=== PATIENT | male | born 2000 | race Caucasian/White ===

== ENCOUNTER 2023-01-20 15:03 | Observation (INO) | payer OTHER, SELFPAY ==
[~2023-01-20 15:03] MED LIST: Iopamidol 300 61% 100 ML VIAL FS ONE
[2023-01-20 15:34] LABS: #Basophils 0.1 10x3/uL (0.0-0.2); #Monocytes 1.7 10x3/uL (0.0-1.1); #Neutrophils 18.2 10x3/uL (1.5-8.4); %Basophils 0.2 % (0.0-2.0); %Lymphocytes 5.9 % (18.0-47.0); %Neutrophils 85.6 % (40.0-75.0); Hematocrit 48.5 % (38.8-50.0); Hemoglobin 17.5 g/dL (13.5-17.5); Mean Corpuscular HGB CONC 36.1 g/dL (32.0-36.0); Mean Corpuscular Hemoglobin 30.1 pg (27.0-33.0); Mean Corpuscular Volume 83.3 fl (81.2-95.1); Mean Platelet Volume 10.1 fl (7.4-10.4); Platelet Count 388 10x3/uL (150-450); RBC Distribution Width 12.6 % (11.5-14.5); Red Blood Cell (RBC) Count 5.82 10x6/uL (4.32-5.72); White Blood Cell (WBC) Count 21.2 10x3/uL (3.5-10.5)
[2023-01-20 15:55] LABS: ALT (SGPT) 30 U/L (8-55); AST (SGOT) 30 U/L (5-34); Alkaline Phosphatase 85 U/L (40-110); Anion Gap 24 mmol/L (10-20); BUN (Urea Nitrogen) 19 mg/dL (8.9-20.6); Bilirubin, Total 1.4 mg/dL (0.2-1.2); Calc. Creatinine Clearance 0 mL/min (70-130); Calcium 11.1 mg/dL (7.8-10.44); Carbon Dioxide 19 mmol/L (22-29); Chloride 96 mmol/L (98-107); Estimated GFR 40; Globulin 3.6 g/dL (2.4-3.5); Glucose 96 mg/dL (70-105); Protein, Total 9.6 g/dL (6.0-8.3); Sodium 136 mmol/L (136-145)
[2023-01-20] MEDS ORDERED: Ondansetron PF 4 MG/2 ML Vial ONE ×2 (16:05→23:18)
[2023-01-20 16:18] LABS: CK (CPK) 841 U/L (30-200); Magnesium 1.4 mg/dL (1.6-2.6)
[2023-01-20] MEDS ORDERED: Potassium Chloride 20 MEQ TAB ONE (16:18)
[2023-01-20] MEDS ORDERED: Ketorolac Tromethamine 30 MG/ML VIAL ONE (16:19)
[2023-01-20] MEDS ORDERED: Pantoprazole 40 MG VIAL ONE (16:34)
[2023-01-20] MEDS ORDERED: Magnesium 2 GM/50 ML BAG (IN WATER) ONE (17:38)
[2023-01-20] MEDS ORDERED: Promethazine HCl 25 MG in Sodium Chloride 0.9% 50 ML IVPB SCH (19:00)
[2023-01-20 20:18] LABS: Calc. Creatinine Clearance 0 mL/min (70-130); Sodium 135 mmol/L (136-145)
[2023-01-20 21:03] LABS: Carbon Dioxide 18 mmol/L (22-29); Chloride 106 mmol/L (98-107); Potassium 3.5 mmol/L (3.5-5.1)
[2023-01-20 21:06] LABS: Anion Gap 15 mmol/L (10-20)
[2023-01-20 21:07] LABS: BUN (Urea Nitrogen) 16 mg/dL (8.9-20.6); Estimated GFR 75
[2023-01-20 21:08] LABS: Bilirubin, Total 1.1 mg/dL (0.2-1.2); Calcium 8.2 mg/dL (7.8-10.44); Glucose 103 mg/dL (70-105)
[2023-01-20 21:09] LABS: Protein, Total 6.6 g/dL (6.0-8.3)
[2023-01-20 21:10] LABS: Albumin 4.3 g/dL (3.5-5.0); Globulin 2.3 g/dL (2.4-3.5)
[2023-01-20 21:11] LABS: AST (SGOT) 27 U/L (5-34); Alkaline Phosphatase 56 U/L (40-110); CK (CPK) 922 U/L (30-200)
[2023-01-20 21:12] LABS: ALT (SGPT) 22 U/L (8-55); Magnesium 2.6 mg/dL (1.6-2.6)
[2023-01-20 21:55] LABS: Bilirubin Neg (Negative); Blood, Urine Negative (Negative); Clarity Clear (Clear); Glucose, Urine (Dipstick) Normal (Negative); Ketone, Urine Negative (Negative); Leukocyte Negative (Negative); Nitrite Negative (Negative); Protein, Urine (Dipstick) 15 mg/dl (Neg-Trace); Urobilinogen Normal mg/dL (Less than 2)
[2023-01-20 22:11] LABS: Bacteria/HPF None Seen HPF (None Seen); CAUTI Indications for Culture Pelvic or flank pain; RBC/HPF None Seen HPF (0-3); Squamous Epithelial None Seen HPF (0-3); Urine Culture Reflex No No; WBC/HPF 0-3 HPF (0-3)
[2023-01-20] MEDS ORDERED: Acetaminophen 325 MG TAB PO PRN (22:56)
[2023-01-20] MEDS ORDERED: Calcium Carbonate 500 MG ChewTAB PO PRN (22:56)
[2023-01-20] MEDS ORDERED: Famotidine/PF 20 mg/2ml Vial SLOW IVP SCH (23:15)
[2023-01-20] MEDS ORDERED: Magnesium 2 GM/50 ML(in water) 2 GM in Premix Bag 1 BAG IVPB SCH (23:15)
[2023-01-20] MEDS: Ondansetron PF 4 MG/2 ML Vial IVP PRN (23:26)
[2023-01-20] MEDS ORDERED: Famotidine/PF 20 mg/2ml Vial ONE (23:46)
[2023-01-20] MEDS: Lactated Ringer's 1,000 ML IV SCH (23:49)
[2023-01-21] MEDS ORDERED: Potassium Chloride 20 MEQ in Premix Bag 1 BAG IVPB SCH
[2023-01-21 02:59] LABS: #Neutrophils 10.4 10x3/uL (1.5-8.4); %Basophils 0.1 % (0.0-2.0); %Eosinophils 0.1 % (0.0-6.0); %Lymphocytes 9.8 % (18.0-47.0); %Monocytes 7.9 % (0.0-10.0); %Neutrophils 81.7 % (40.0-75.0); Hematocrit 36.6 % (38.8-50.0); Hemoglobin 12.9 g/dL (13.5-17.5); Mean Corpuscular HGB CONC 35.2 g/dL (32.0-36.0); Mean Corpuscular Hemoglobin 30.2 pg (27.0-33.0); Mean Corpuscular Volume 85.7 fl (81.2-95.1); Mean Platelet Volume 10.5 fl (7.4-10.4); Platelet Count 225 10x3/uL (150-450); RBC Distribution Width 12.8 % (11.5-14.5); Red Blood Cell (RBC) Count 4.27 10x6/uL (4.32-5.72); White Blood Cell (WBC) Count 12.7 10x3/uL (3.5-10.5)
[2023-01-21 03:12] LABS: Anion Gap 13 mmol/L (10-20); BUN (Urea Nitrogen) 15 mg/dL (8.9-20.6); CK (CPK) 924 U/L (30-200); Calc. Creatinine Clearance 0 mL/min (70-130); Calcium 8.2 mg/dL (7.8-10.44); Carbon Dioxide 20 mmol/L (22-29); Chloride 108 mmol/L (98-107); Estimated GFR 114; Glucose 98 mg/dL (70-105); Magnesium 2.3 mg/dL (1.6-2.6); Potassium 3.4 mmol/L (3.5-5.1); Sodium 138 mmol/L (136-145)
[2023-01-21] MEDS: Lactated Ringer's 1,000 ML IV SCH ×3 (04:52→14:22)
[2023-01-21] MEDS: Ondansetron PF 4 MG/2 ML Vial IVP PRN (05:55)
[2023-01-21] MEDS ORDERED: Ondansetron PF 4 MG/2 ML Vial ONE (05:55)
[2023-01-21] MEDS ORDERED: Potassium Chloride 20 MEQ TAB PO SCH (08:00)
[2023-01-21] MEDS ORDERED: Potassium Chloride 20 MEQ TAB ONE (08:55)
[2023-01-21 12:50] LABS: Anion Gap 12 mmol/L (10-20); BUN (Urea Nitrogen) 10 mg/dL (8.9-20.6); Calc. Creatinine Clearance 0 mL/min (70-130); Calcium 8.4 mg/dL (7.8-10.44); Carbon Dioxide 22 mmol/L (22-29); Chloride 108 mmol/L (98-107); Estimated GFR 130; Glucose 98 mg/dL (70-105); Potassium 3.5 mmol/L (3.5-5.1); Sodium 138 mmol/L (136-145)
[2023-01-21 12:58] VITALS: BP 136/68; TEMP 97.8
[2023-01-21 14:16] VITALS: BMI 22.0
== END 2023-01-21 16:10 | disposition home or self-care (01) ==
LOC: CSHERS 15:03 → CSHERHOLD 22:43 → INTOOBSV 22:43
PROVIDERS: ADMIT Student in an Organized Health Care Education/Training Program; ATTEND Nurse Practitioner Family
DX: M62.82 Rhabdomyolysis (principal); E87.6 Hypokalemia; E83.42 Hypomagnesemia; N17.9 Acute kidney failure, unspecified; E87.20 Acidosis, unspecified; I48.91 Unspecified atrial fibrillation; R65.10 Systemic inflammatory response syndrome (SIRS) of non-infectious origin without acute organ dysfunction; F17.290 Nicotine dependence, other tobacco product, uncomplicated; T67.9XXA Effect of heat and light, unspecified, initial encounter; Z79.899 Other long term (current) drug therapy
CPT/HCPCS: 36415; 74177; 76705; 80048; 80053; 81001; 82550; 83605; 83690; 83735; 84443; 85025; 87040; 93005; 93010; 93306; 96374; 96375; 96376; C9113; G0378; J1650; J1885; J2405; J2550; J3475; J7120; Q9967; S0028

== ENCOUNTER 2023-11-30 21:54 | Emergency (ER) | payer OTHER, SELFPAY ==
[2023-11-30] MEDS ORDERED: Ibuprofen 200 MG TAB ONE (23:20)
== END 2023-11-30 23:44 | disposition home or self-care (01) ==
LOC: CSHERS 21:54
DX: H60.502 Unspecified acute noninfective otitis externa, left ear (principal); F17.290 Nicotine dependence, other tobacco product, uncomplicated
CPT/HCPCS: 99282

== ENCOUNTER 2023-12-22 09:55 | Emergency (ER) | payer SELFPAY ==
[2023-12-22] MEDS ORDERED: Ketorolac Tromethamine 30 MG (1 mL) VIAL ONE (10:37)
[2023-12-22] MEDS ORDERED: Ondansetron PF 4 MG/2 ML Vial ONE ×2 (10:37→12:03)
[2023-12-22] MEDS ORDERED: Pantoprazole 40 MG VIAL ONE (10:38)
[2023-12-22 10:54] LABS: ALT (SGPT) 10 U/L (8-55); AST (SGOT) 14 U/L (5-34); Albumin 4.8 g/dL (3.5-5.0); Alkaline Phosphatase 75 U/L (40-110); Anion Gap 16 mmol/L (10-20); BUN (Urea Nitrogen) 5 mg/dL (8.9-20.6); Bilirubin, Total 0.9 mg/dL (0.2-1.2); Calc. Creatinine Clearance 0 mL/min (70-130); Calcium 10.4 mg/dL (7.8-10.44); Carbon Dioxide 22 mmol/L (22-29); Chloride 106 mmol/L (98-107); Estimated GFR 126; Globulin 2.5 g/dL (2.4-3.5); Glucose 131 mg/dL (70-105); Lipase 17 U/L (8-78); Potassium 3.3 mmol/L (3.5-5.1); Protein, Total 7.3 g/dL (6.0-8.3); Sodium 141 mmol/L (136-145)
[2023-12-22 11:02] LABS: #Basophils 0.05 10x3/uL (0.0-0.2); #Monocytes 0.33 10x3/uL (0.0-1.1); #Neutrophils 9.33 10x3/uL (1.5-8.4); %Basophils 0.5 % (0.0-2.0); %Lymphocytes 8.9 % (18.0-47.0); %Monocytes 3.1 % (0.0-10.0); %Neutrophils 87.2 % (40.0-75.0); Hematocrit 42.9 % (38.8-50.0); Hemoglobin 15.5 g/dL (13.5-17.5); Mean Corpuscular HGB CONC 36.1 g/dL (32.0-36.0); Mean Corpuscular Hemoglobin 31.3 pg (27.0-33.0); Mean Corpuscular Volume 86.5 fL (81.2-95.1); Mean Platelet Volume 10.2 fL (7.4-10.4); Platelet Count 285 10x3/uL (150-450); RBC Distribution Width 12.6 % (11.5-14.5); Red Blood Cell (RBC) Count 4.96 10x6/uL (4.32-5.72); White Blood Cell (WBC) Count 10.7 10x3/uL (3.5-10.5)
[2023-12-22] MEDS ORDERED: Lidocaine 2% Viscous 10 mL, Alum & Magn 30 mL SSW SCH (13:30)
== END 2023-12-22 12:14 | disposition home or self-care (01) ==
LOC: CSHERS 09:55
DX: K52.9 Noninfective gastroenteritis and colitis, unspecified (principal); F17.290 Nicotine dependence, other tobacco product, uncomplicated
CPT/HCPCS: 80053; 83690; 85025; 96374; 96375; 96376; C9113; J1885; J2405

== ENCOUNTER 2024-03-20 05:28 | Emergency (ER) | payer SELFPAY ==
[2024-03-20] MEDS ORDERED: Ketorolac Tromethamine 30 MG (1 mL) VIAL ONE ×2 (06:17→08:52)
[2024-03-20] MEDS ORDERED: Famotidine/PF 20 mg/2ml Vial ONE (06:17)
[2024-03-20] MEDS ORDERED: Ondansetron PF 4 MG/2 ML Vial ONE ×2 (06:17→08:51)
[2024-03-20 06:50] LABS: #Basophils 0.01 10x3/uL (0.0-0.2); #Monocytes 0.77 10x3/uL (0.0-1.1); #Neutrophils 10.12 10x3/uL (1.5-8.4); %Basophils 0.1 % (0.0-2.0); %Lymphocytes 8.4 % (18.0-47.0); %Monocytes 6.5 % (0.0-10.0); %Neutrophils 84.7 % (40.0-75.0); Hematocrit 45.4 % (38.8-50.0); Mean Corpuscular HGB CONC 35.2 g/dL (32.0-36.0); Mean Corpuscular Hemoglobin 30.3 pg (27.0-33.0); Mean Platelet Volume 9.6 fL (7.4-10.4); Platelet Count 330 10x3/uL (150-450); RBC Distribution Width 12.1 % (11.5-14.5); Red Blood Cell (RBC) Count 5.28 10x6/uL (4.32-5.72); White Blood Cell (WBC) Count 11.9 10x3/uL (3.5-10.5)
[2024-03-20 07:05] LABS: ALT (SGPT) 24 U/L (8-55); AST (SGOT) 21 U/L (5-34); Alkaline Phosphatase 78 U/L (40-110); Anion Gap 18 mmol/L (10-20); BUN (Urea Nitrogen) 16 mg/dL (8.9-20.6); Bilirubin, Total 2.1 mg/dL (0.2-1.2); Calc. Creatinine Clearance 0 mL/min (70-130); Calcium 10.5 mg/dL (7.8-10.44); Carbon Dioxide 22 mmol/L (22-29); Chloride 97 mmol/L (98-107); Estimated GFR 125; Globulin 2.9 g/dL (2.4-3.5); Glucose 129 mg/dL (70-105); Lipase 20 U/L (8-78); Potassium 3.3 mmol/L (3.5-5.1); Protein, Total 7.9 g/dL (6.0-8.3); Sodium 134 mmol/L (136-145)
[2024-03-20 07:12] LABS: Troponin I Less than 0.010 ng/mL (< 0.028)
[2024-03-20] MEDS ORDERED: Dicyclomine 20 MG/2 ML VIAL ONE (08:51)
[2024-03-20 09:37] LABS: Bilirubin Neg (Negative); Blood, Urine 10 (Negative); Glucose, Urine (Dipstick) Normal (Negative); Ketone, Urine Negative (Negative); Leukocyte Negative (Negative); Nitrite Negative (Negative); Protein, Urine (Dipstick) 15 mg/dl (Neg-Trace); Specific Gravity, Urine 1.015 (1.005-1.030); Urobilinogen Normal mg/dL (Less than 2)
[2024-03-20 09:53] LABS: Clarity Clear (Clear)
[2024-03-20 10:04] LABS: Bacteria/HPF Rare-Few HPF (None Seen); CAUTI Indications for Culture Pelvic or flank pain; RBC/HPF 0-3 HPF (0-3); Renal Epithelial 0-3 HPF (None Seen); WBC/HPF 0-3 HPF (0-3)
[2024-03-20 10:05] LABS: Urine Culture Reflex No No
[2024-03-20] MEDS ORDERED: Sucralfate 1 GM/10 ML UDCUP ONE (10:55)
[2024-03-20] MEDS ORDERED: Haloperidol Lactate 5 MG/ML VIAL ONE (11:21)
[2024-03-20] MEDS ORDERED: diphenhydrAMINE 50 MG/ML VIAL ONE (11:21)
[2024-03-20 11:42] LABS: Amphetamine Not Detected (NotDetected); Barbiturates Screen Not Detected (NotDetected); Benzodiazepine Screen Not Detected (NotDetected); Cocaine Metabolite Screen Not Detected (NotDetected); Methadone Not Detected (NotDetected); Methamphetamine Not Detected (NotDetected); Opiate Screen Detected (NotDetected); Oxycodone Screen Not Detected (NotDetected); Phencyclidine (PCP) Not Detected (NotDetected); THC/Cannabinoid Screen Detected (NotDetected); Tricyclic Screen Not Detected (NotDetected)
[2024-03-20] MEDS ORDERED: Iopamidol 300 61% 100 ML VIAL FS ONE (15:25)
== END 2024-03-20 13:20 | disposition home or self-care (01) ==
LOC: CSHERS 05:28
DX: K29.70 Gastritis, unspecified, without bleeding (principal); R11.2 Nausea with vomiting, unspecified
CPT/HCPCS: 74177; 76705; 80053; 80306; 81001; 83690; 83735; 84484; 85025; 93005; 96361; 96372; 96374; 96375; 96376; J1200; J1630; J1885; J2405; J3490; Q9967

== ENCOUNTER 2024-04-26 12:26 | Emergency (ER) | payer OTHER ==
[2024-04-26] MEDS ORDERED: Ondansetron ODT 4 MG TAB ONE (13:50)
[2024-04-26] MEDS ORDERED: Sucralfate 1 GM/10 ML UDCUP ONE (13:51)
[2024-04-26] MEDS ORDERED: Lidocaine Viscous Sol 2% 15 ml UD Cup ONE (13:51)
[2024-04-26] MEDS ORDERED: Mag-Al 1200 mg/1200 mg/30 ML UDCUP ONE (13:51)
[2024-04-26] MEDS ORDERED: Haloperidol Lactate 5 MG/ML VIAL ONE (14:10)
[2024-04-26 14:19] LABS: #Basophils 0.01 10x3/uL (0.0-0.2); #Eosinophils 0.01 10x3/uL (0.0-0.5); #Monocytes 0.31 10x3/uL (0.0-1.1); #Neutrophils 5.96 10x3/uL (1.5-8.4); %Basophils 0.1 % (0.0-2.0); %Eosinophils 0.1 % (0.0-6.0); %Lymphocytes 16.1 % (18.0-47.0); %Monocytes 4.1 % (0.0-10.0); %Neutrophils 79.3 % (40.0-75.0); Hematocrit 41.6 % (38.8-50.0); Hemoglobin 14.1 g/dL (13.5-17.5); Mean Corpuscular HGB CONC 33.9 g/dL (32.0-36.0); Mean Corpuscular Hemoglobin 30.3 pg (27.0-33.0); Mean Corpuscular Volume 89.3 fL (81.2-95.1); Mean Platelet Volume 10.3 fL (7.4-10.4); Platelet Count 234 10x3/uL (150-450); RBC Distribution Width 12.6 % (11.5-14.5); Red Blood Cell (RBC) Count 4.66 10x6/uL (4.32-5.72); White Blood Cell (WBC) Count 7.5 10x3/uL (3.5-10.5)
[2024-04-26 14:28] LABS: ALT (SGPT) 18 U/L (8-55); AST (SGOT) 11 U/L (5-34); Albumin 4.3 g/dL (3.5-5.0); Alkaline Phosphatase 64 U/L (40-110); Anion Gap 13 mmol/L (10-20); BUN (Urea Nitrogen) 9 mg/dL (8.9-20.6); Bilirubin, Total 0.9 mg/dL (0.2-1.2); Calc. Creatinine Clearance 0 mL/min (70-130); Calcium 9.7 mg/dL (7.8-10.44); Carbon Dioxide 25 mmol/L (22-29); Chloride 106 mmol/L (98-107); Estimated GFR 126; Globulin 2.5 g/dL (2.4-3.5); Glucose 109 mg/dL (70-105); Lipase 17 U/L (8-78); Potassium 3.6 mmol/L (3.5-5.1); Protein, Total 6.8 g/dL (6.0-8.3); Sodium 140 mmol/L (136-145)
== END 2024-04-26 14:59 | disposition home or self-care (01) ==
LOC: CSHERS 12:26
DX: R10.13 Epigastric pain (principal); R11.2 Nausea with vomiting, unspecified
CPT/HCPCS: 36415; 80053; 83690; 85025; 96372; 99284; J1630; Q0162

== ENCOUNTER 2024-04-27 15:04 | Emergency (ER) | payer OTHER ==
[2024-04-27] MEDS ORDERED: Diazepam 10 MG/2 ML SYRINGE ONE ×2 (15:28→16:49)
[2024-04-27] MEDS ORDERED: methylPREDNISolone Sod Succ/PF 125 MG/2 ML VIAL ONE (16:24)
[2024-04-27] MEDS ORDERED: Famotidine/PF 20 mg/2ml Vial ONE (16:24)
[2024-04-27 16:38] LABS: #Basophils 0.08 10x3/uL (0.0-0.2); #Monocytes 0.35 10x3/uL (0.0-1.1); #Neutrophils 21.37 10x3/uL (1.5-8.4); %Basophils 0.4 % (0.0-2.0); %Lymphocytes 1.4 % (18.0-47.0); %Monocytes 1.6 % (0.0-10.0); %Neutrophils 96.2 % (40.0-75.0); Hematocrit 51.9 % (38.8-50.0); Hemoglobin 18.5 g/dL (13.5-17.5); Mean Corpuscular HGB CONC 35.6 g/dL (32.0-36.0); Mean Corpuscular Hemoglobin 31.1 pg (27.0-33.0); Mean Corpuscular Volume 87.4 fL (81.2-95.1); Platelet Count 401 10x3/uL (150-450); RBC Distribution Width 12.7 % (11.5-14.5); Red Blood Cell (RBC) Count 5.94 10x6/uL (4.32-5.72); White Blood Cell (WBC) Count 22.2 10x3/uL (3.5-10.5)
[2024-04-27 16:50] LABS: Magnesium 2.1 mg/dL (1.6-2.6)
[2024-04-27 17:11] LABS: ALT (SGPT) 24 U/L (8-55); AST (SGOT) 20 U/L (5-34); Albumin 5.9 g/dL (3.5-5.0); Alkaline Phosphatase 94 U/L (40-110); Anion Gap 22 mmol/L (10-20); BUN (Urea Nitrogen) 16 mg/dL (8.9-20.6); Bilirubin, Total 1.3 mg/dL (0.2-1.2); Calc. Creatinine Clearance 0 mL/min (70-130); Carbon Dioxide 18 mmol/L (22-29); Chloride 102 mmol/L (98-107); Estimated GFR 38; Globulin 3.9 g/dL (2.4-3.5); Glucose 241 mg/dL (70-105); Potassium 3.5 mmol/L (3.5-5.1); Protein, Total 9.8 g/dL (6.0-8.3); Sodium 138 mmol/L (136-145)
[2024-04-27] MEDS ORDERED: Vancomycin 1 GM VIAL ONE (17:34)
[2024-04-27] MEDS ORDERED: Cefepime 2 GM VIAL ONE (17:35)
[2024-04-27 17:55] LABS: Actual Bicarbonate (HCO3v) 19.8 mEq/L (22-28); Analyzer IN Cardio CS ER; Base Excess -4.1 mEq/L (-2 - +2); Calcium, Ionized (venous) 1.21 mmol/L (1.16-1.32); Chloride (VBG) 101 mmol/L (98-106); Hematocrit-VBG 50 % (42.0-52.0); Hemoglobin (Hb) 17.1 g/dL (13.2-17.3); Potassium (VBG) 3.52 mmol/L (3.70-5.30); Puncture Site Other Site; RapidComm Collect By LAB; Sodium 141 mmol/L (133-146); pH (venous) 7.388 (7.32-7.43)
[2024-04-27 18:16] LABS: Acetaminophen Less than 10 mcg/mL (Less than 10); Alcohol Less than 10.0 mg/dL (Less than 10); Lipase 27 U/L (8-78); Salicylate Less than 8.0 mg/dL (Less than 8.0)
[2024-04-27 18:22] LABS: Troponin I Less than 0.010 ng/mL (< 0.028)
[2024-04-27 19:53] LABS: Bilirubin Neg (Negative); Blood, Urine 10 (Negative); Clarity Clear (Clear); Glucose, Urine (Dipstick) Normal (Negative); Ketone, Urine Negative (Negative); Leukocyte Negative (Negative); Nitrite Negative (Negative); Protein, Urine (Dipstick) 30 mg/dl (Neg-Trace); Specific Gravity, Urine 1.005 (1.005-1.030); Urobilinogen Normal mg/dL (Less than 2)
[2024-04-27 20:04] LABS: Amphetamine Not Detected (NotDetected); Barbiturates Screen Not Detected (NotDetected); Benzodiazepine Screen Detected (NotDetected); Cocaine Metabolite Screen Not Detected (NotDetected); Methadone Not Detected (NotDetected); Methamphetamine Not Detected (NotDetected); Opiate Screen Not Detected (NotDetected); Oxycodone Screen Not Detected (NotDetected); Phencyclidine (PCP) Not Detected (NotDetected); THC/Cannabinoid Screen Detected (NotDetected); Tricyclic Screen Not Detected (NotDetected)
[2024-04-27] MEDS ORDERED: Ondansetron PF 4 MG/2 ML Vial ONE (20:18)
[2024-04-27 20:55] LABS: Bacteria/HPF 1+ HPF (None Seen); CAUTI Indications for Culture Alt mental st,lethar; RBC/HPF 0-3 HPF (0-3); Squamous Epithelial 0-3 HPF (0-3); WBC/HPF 0-3 HPF (0-3)
[2024-04-27 20:57] LABS: Urine Culture Reflex No No
== END 2024-04-27 23:21 | disposition short-term general hospital (02) ==
LOC: CSHERS 15:04
DX: N17.9 Acute kidney failure, unspecified (principal); E86.0 Dehydration; T50.905A Adverse effect of unspecified drugs, medicaments and biological substances, initial encounter; R74.02 Elevation of levels of lactic acid dehydrogenase [LDH]; Z55.0 Illiteracy and low-level literacy
CPT/HCPCS: 36415; 70491; 71045; 80053; 80306; 80307; 81001; 82010; 82805; 83605; 83690; 83735; 84484; 85025; 87040; 87086; 93005; 93010; 96361; 96365; 96372; 96375; J0692; J2405; J2919; J3360; J3370; J3490

== ENCOUNTER 2024-06-27 07:50 | Emergency (ER) | payer OTHER ==
[2024-06-27] MEDS ORDERED: Ketorolac Tromethamine 30 MG (1 mL) VIAL ONE (08:37)
[2024-06-27] MEDS ORDERED: Ondansetron PF 4 MG/2 ML Vial ONE (08:37)
[2024-06-27 09:06] LABS: #Basophils Less than 0.03 10x3/uL (0.0-0.2); #Eosinophils Less than 0.03 10x3/uL (0.0-0.5); #Monocytes 0.28 10x3/uL (0.0-1.1); #Neutrophils 12.52 10x3/uL (1.5-8.4); %Basophils 0.1 % (0.0-2.0); %Eosinophils 0.1 % (0.0-6.0); %Monocytes 2.1 % (0.0-10.0); %Neutrophils 92.3 % (40.0-75.0); Hematocrit 48.2 % (38.8-50.0); Hemoglobin 16.6 g/dL (13.5-17.5); Mean Corpuscular HGB CONC 34.4 g/dL (32.0-36.0); Mean Corpuscular Hemoglobin 29.3 pg (27.0-33.0); Mean Corpuscular Volume 85.2 fL (81.2-95.1); Mean Platelet Volume 10.2 fL (7.4-10.4); Platelet Count 268 10x3/uL (150-450); RBC Distribution Width 12.2 % (11.5-14.5); Red Blood Cell (RBC) Count 5.66 10x6/uL (4.32-5.72); White Blood Cell (WBC) Count 13.57 10x3/uL (3.5-10.5)
[2024-06-27] MEDS ORDERED: Droperidol 5 MG/2 ML VIAL ONE (09:21)
[2024-06-27 09:23] LABS: ALT (SGPT) 23 U/L (8-55); AST (SGOT) 22 U/L (5-34); Albumin 5.1 g/dL (3.5-5.0); Alkaline Phosphatase 76 U/L (40-110); Anion Gap 18 mmol/L (10-20); BUN (Urea Nitrogen) 11 mg/dL (8.9-20.6); Bilirubin, Total 1.1 mg/dL (0.2-1.2); Calc. Creatinine Clearance 0 mL/min (70-130); Calcium 10.3 mg/dL (7.8-10.44); Carbon Dioxide 18 mmol/L (22-29); Chloride 108 mmol/L (98-107); Estimated GFR 119; Globulin 3.1 g/dL (2.4-3.5); Glucose 198 mg/dL (70-105); Lipase 23 U/L (8-78); Magnesium 1.7 mg/dL (1.6-2.6); Potassium 3.8 mmol/L (3.5-5.1); Protein, Total 8.2 g/dL (6.0-8.3); Sodium 140 mmol/L (136-145)
[2024-06-27] MEDS ORDERED: diphenhydrAMINE 50 MG/ML VIAL ONE (09:26)
[2024-06-27 11:08] LABS: Bilirubin Neg (Negative); Blood, Urine 10 (Negative); Clarity Clear (Clear); Glucose, Urine (Dipstick) Normal (Negative); Ketone, Urine 15 mg/dL (Negative); Leukocyte 25 (Negative); Nitrite Negative (Negative); Protein, Urine (Dipstick) 30 mg/dl (Neg-Trace); Specific Gravity, Urine 1.025 (1.005-1.030); Urobilinogen Normal mg/dL (Less than 2)
[2024-06-27 11:58] LABS: CAUTI Indications for Culture Pelvic or flank pain; RBC/HPF 0-3 HPF (0-3)
[2024-06-27 11:59] LABS: Bacteria/HPF Rare-Few HPF (None Seen); Calcium Oxalate Crystals 1+ HPF (None Seen); Squamous Epithelial 0-3 HPF (0-3)
[2024-06-27 12:00] LABS: Mucous/LPF 2+ LPF (<2+)
[2024-06-27 12:02] LABS: Urine Culture Reflex No No
== END 2024-06-27 11:32 | disposition home or self-care (01) ==
LOC: CSHERS 07:50
DX: R11.2 Nausea with vomiting, unspecified (principal); R10.84 Generalized abdominal pain
CPT/HCPCS: 80053; 81001; 83690; 83735; 85025; 96374; 96375; J1200; J1790; J1885; J2405

== ENCOUNTER 2024-06-28 20:27 | Emergency (ER) | payer OTHER ==
[~2024-06-28 20:27] MED LIST changes: -Iopamidol 300 61% 100 ML VIAL FS ONE; +Iopamidol 370 76% 100 ML VIAL ONE
[2024-06-28] MEDS ORDERED: diphenhydrAMINE 50 MG/ML VIAL ONE (21:38)
[2024-06-28] MEDS ORDERED: Droperidol 5 MG/2 ML VIAL ONE (21:38)
[2024-06-28 21:45] LABS: Bilirubin 1+ (Negative); Blood, Urine 10 (Negative); Clarity Clear (Clear); Glucose, Urine (Dipstick) Normal (Negative); Ketone, Urine 50 mg/dL (Negative); Leukocyte 25 (Negative); Nitrite Negative (Negative); Protein, Urine (Dipstick) 30 mg/dl (Neg-Trace)
[2024-06-28 21:47] LABS: #Basophils Less than 0.03 10x3/uL (0.0-0.2); #Eosinophils 0.06 10x3/uL (0.0-0.5); #Monocytes 0.92 10x3/uL (0.0-1.1); #Neutrophils 17.39 10x3/uL (1.5-8.4); %Basophils 0.1 % (0.0-2.0); %Eosinophils 0.3 % (0.0-6.0); %Lymphocytes 4.4 % (18.0-47.0); %Monocytes 4.8 % (0.0-10.0); Hematocrit 43.7 % (38.8-50.0); Hemoglobin 15.7 g/dL (13.5-17.5); Mean Corpuscular HGB CONC 35.9 g/dL (32.0-36.0); Mean Corpuscular Hemoglobin 29.7 pg (27.0-33.0); Mean Corpuscular Volume 82.6 fL (81.2-95.1); Mean Platelet Volume 10.1 fL (7.4-10.4); Platelet Count 357 10x3/uL (150-450); RBC Distribution Width 12.1 % (11.5-14.5); Red Blood Cell (RBC) Count 5.29 10x6/uL (4.32-5.72); White Blood Cell (WBC) Count 19.31 10x3/uL (3.5-10.5)
[2024-06-28 21:59] LABS: Bacteria/HPF None Seen HPF (None Seen); CAUTI Indications for Culture Pelvic or flank pain; Mucous/LPF 2+ LPF (<2+); RBC/HPF 0-3 HPF (0-3); Squamous Epithelial 0-3 HPF (0-3); WBC/HPF 0-3 HPF (0-3)
[2024-06-28 22:00] LABS: Urine Culture Reflex No No
[2024-06-28 22:09] LABS: Albumin 5.3 g/dL (3.5-5.0); Anion Gap 20 mmol/L (10-20); Carbon Dioxide 20 mmol/L (22-29); Glucose 110 mg/dL (70-105)
[2024-06-28 22:37] LABS: ALT (SGPT) 23 U/L (8-55); AST (SGOT) 21 U/L (5-34); Alkaline Phosphatase 67 U/L (40-110); BUN (Urea Nitrogen) 12 mg/dL (8.9-20.6); Bilirubin, Total 2.5 mg/dL (0.2-1.2); Calc. Creatinine Clearance 0 mL/min (70-130); Calcium 10.9 mg/dL (7.8-10.44); Chloride 99 mmol/L (98-107); Estimated GFR 108; Lipase 21 U/L (8-78); Magnesium 1.4 mg/dL (1.6-2.6); Potassium 2.9 mmol/L (3.5-5.1); Protein, Total 8.3 g/dL (6.0-8.3); Sodium 136 mmol/L (136-145)
[2024-06-28] MEDS ORDERED: Magnesium 2 GM/50 ML BAG (IN WATER) ONE (22:56)
[2024-06-28] MEDS ORDERED: Potassium Chloride 20 MEQ TAB ONE (22:56)
[2024-06-28] MEDS ORDERED: methylPREDNISolone Sod Succ/PF 125 MG/2 ML VIAL ONE (23:25)
[2024-06-28] MEDS ORDERED: fentaNYL 50 mcg/mL 1 mL Vial ONE (23:51)
== END 2024-06-29 01:40 | disposition home or self-care (01) ==
LOC: CSHERS 20:27
DX: R11.2 Nausea with vomiting, unspecified (principal)
CPT/HCPCS: 74177; 80053; 81001; 83690; 83735; 85025; 96361; 96365; 96375; 96376; J1200; J1790; J2919; J3010; J3475; Q9967

== ENCOUNTER 2024-06-29 22:13 | Emergency (ER) | payer OTHER ==
[2024-06-29 23:16] LABS: #Basophils Less than 0.03 10x3/uL (0.0-0.2); #Eosinophils 0.08 10x3/uL (0.0-0.5); #Monocytes 1.26 10x3/uL (0.0-1.1); #Neutrophils 14.67 10x3/uL (1.5-8.4); %Basophils 0.1 % (0.0-2.0); %Eosinophils 0.5 % (0.0-6.0); %Lymphocytes 7.2 % (18.0-47.0); %Monocytes 7.3 % (0.0-10.0); %Neutrophils 84.5 % (40.0-75.0); Hematocrit 41.2 % (38.8-50.0); Hemoglobin 14.8 g/dL (13.5-17.5); Mean Corpuscular HGB CONC 35.9 g/dL (32.0-36.0); Mean Corpuscular Hemoglobin 29.8 pg (27.0-33.0); Mean Corpuscular Volume 82.9 fL (81.2-95.1); Platelet Count 322 10x3/uL (150-450); RBC Distribution Width 12.3 % (11.5-14.5); Red Blood Cell (RBC) Count 4.97 10x6/uL (4.32-5.72); White Blood Cell (WBC) Count 17.33 10x3/uL (3.5-10.5)
[2024-06-29 23:27] LABS: ALT (SGPT) 18 U/L (8-55); AST (SGOT) 18 U/L (5-34); Albumin 4.6 g/dL (3.5-5.0); Alkaline Phosphatase 61 U/L (40-110); Anion Gap 15 mmol/L (10-20); BUN (Urea Nitrogen) 9 mg/dL (8.9-20.6); Bilirubin, Total 1.9 mg/dL (0.2-1.2); Calc. Creatinine Clearance 0 mL/min (70-130); Calcium 9.8 mg/dL (7.8-10.44); Carbon Dioxide 22 mmol/L (22-29); Chloride 101 mmol/L (98-107); Estimated GFR 127; Globulin 2.7 g/dL (2.4-3.5); Glucose 113 mg/dL (70-105); Lipase 16 U/L (8-78); Protein, Total 7.3 g/dL (6.0-8.3); Sodium 135 mmol/L (136-145)
== END 2024-06-30 01:15 | disposition left against medical advice (07) ==
LOC: CSHERS 22:13
DX: Z53.21 Procedure and treatment not carried out due to patient leaving prior to being seen by health care provider (principal)
CPT/HCPCS: 36415; 80053; 83690; 85025

== ENCOUNTER 2025-02-03 14:24 | Emergency (ER) | payer OTHER ==
[2025-02-03] MEDS ORDERED: Ondansetron PF 4 MG/2 ML Vial ONE (15:07)
[2025-02-03 15:41] LABS: #Basophils Less than 0.03 10x3/uL (0.0-0.2); #Eosinophils Less than 0.03 10x3/uL (0.0-0.5); #Monocytes 0.90 10x3/uL (0.0-1.1); #Neutrophils 13.09 10x3/uL (1.5-8.4); %Basophils 0.1 % (0.0-2.0); %Eosinophils 0.1 % (0.0-6.0); %Lymphocytes 7.0 % (18.0-47.0); %Monocytes 6.0 % (0.0-10.0); %Neutrophils 86.5 % (40.0-75.0); Hematocrit 46.6 % (38.8-50.0); Hemoglobin 16.3 g/dL (13.5-17.5); Mean Corpuscular Hemoglobin 29.2 pg (27.0-33.0); Mean Corpuscular Volume 83.4 fL (81.2-95.1); Platelet Count 346 10x3/uL (150-450); Red Blood Cell (RBC) Count 5.59 10x6/uL (4.32-5.72); White Blood Cell (WBC) Count 15.12 10x3/uL (3.5-10.5)
[2025-02-03 15:57] LABS: ALT (SGPT) 301 U/L (Less than 45); AST (SGOT) 87 U/L (11-34); Albumin 5.5 g/dL (3.1-4.5); Alkaline Phosphatase 95 U/L (40-110); Anion Gap 20 mmol/L (10-20); BUN (Urea Nitrogen) 25 mg/dL (8.9-20.6); Bilirubin, Total 2.8 mg/dL (0.3-1.2); Calc. Creatinine Clearance 0 mL/min (70-130); Calcium 10.5 mg/dL (7.8-10.44); Carbon Dioxide 24 mmol/L (22-29); Chloride 94 mmol/L (98-107); Globulin 3.7 g/dL (2.4-3.5); Glucose 117 mg/dL (70-105); Potassium 2.7 mmol/L (3.5-5.1); Sodium 135 mmol/L (136-145)
== END 2025-02-03 16:54 | disposition home or self-care (01) ==
LOC: CSHERS 14:24
DX: E86.0 Dehydration (principal); E80.6 Other disorders of bilirubin metabolism; E87.6 Hypokalemia
CPT/HCPCS: 36415; 80053; 85025; 96361; 96374; J2405